=== PATIENT | male | born 1960 | race African-American/Black ===

== ENCOUNTER 2016-12-28 18:38 | Observation (INO) | payer BC, OTHER ==
[~2016-12-28] VITALS: Ht 175.3 cm; Wt 102.1 kg
[~2016-12-28 18:38] MED LIST: APIX5TAB PO; CARV6.25 PO; DUONEB NEB; Ipratropium/Albuterol Sulfate NEB; LISI1TAB7 PO; METH5TAB6 PO; METO25TA9 PO; PRED20TA PO; PRED5TAB PO; WARF7.5T PO
--- NOTE | 2016-12-28 18:45 | ED.ADGEN ---
Past History Past Medical History: A-Fib, Asthma, CAD, GERD, Hypertension, Other Past Surgical History: Knee Replacement, Pacemaker, Other Alcohol Use: None Drug Use: None Adult General Chief Complaint Chief Complaint ".. I ve be having abd. [pain.. I was here the other day for it... and they ended up sending me to [facility].. for cardiac stuff.. but they never fixed my abd. problems..." HPI HPI Patient is a 56 year old male who presents with complaints of lower abdomen pain and distention. Patient previously had a diagnosis of constipation. Patient states she's been having small hard stools. No history of dark tarry or bloody stools. Patient has extensive other medical history including asthma, A. fib, coronary artery disease, GERD, hypertension, pacemaker placement, and deconditioning. Patient states she's been taking a normal diet. No history of trauma. No history of bad food intake. No history of travel. Patient follows Dr. Jackson and [facility] for his medical care. Review of Systems Review of Systems Constitutional: Denies fever or chills [] Eyes: Denies change in visual acuity, redness, or eye pain [] HENT: Denies nasal congestion or sore throat [] Respiratory: Denies cough or shortness of breath [] Cardiovascular: No additional information not addressed in HPI [] GI: Complaints of lower abdominal pain, and distention. Denies Nausea, vomiting , bloody stools or diarrhea [] : Denies dysuria or hematuria [] Musculoskeletal: Denies back pain or joint pain [] Integument: Denies rash or skin lesions [] Neurologic: Denies headache, focal weakness or sensory changes [] Endocrine: Denies polyuria or polydipsia [] Family History Family History Noncontributory Current Medications Current Medications Current Medications Medications (Trade) Dose Ordered Sig/Cyndie Start Time Stop Time Status Last Admin Dose Admin Famotidine (Pepcid) 20 mg 1X ONCE 12/28/16 20:30 12/28/16 20:31 DC 12/28/16 20:44 20 MG Ketorolac Tromethamine (Toradol) 15 mg PRN Q12HR PRN 12/28/16 21:15 01/02/17 21:14 Lactated Ringer's (Iv Lactated Ringers) 1,000 ml @ 1,000 mls/hr Q1H 12/28/16 20:15 12/28/16 22:12 1,000 MLS/HR Magnesium Citrate (Citroma) 296 ml 1X ONCE 12/28/16 21:15 12/28/16 21:16 DC 12/28/16 22:12 296 ML Morphine Sulfate (Morphine 10mg Syringe) 10 mg 1X ONCE 12/28/16 20:30 12/28/16 20:31 DC 12/28/16 20:44 10 MG Ondansetron HCl (Zofran) 4 mg PRN Q4HRS PRN 12/28/16 21:15 12/29/16 21:14 12/28/16 22:14 4 MG Polyethylene Glycol/ Electrolytes (Golytely) 4,000 ml 1X ONCE 12/28/16 21:30 12/28/16 21:31 DC 12/28/16 22:12 4,000 ML Potassium Chloride (KCl Oral Soln) 40 meq 1X ONCE 12/28/16 21:30 12/28/16 21:31 DC 12/28/16 22:11 40 MEQ Allergies Allergies Allergies Coded Allergies Type Severity Reaction Last Updated Verified No Known Drug Allergies 01/22/15 No Physical Exam Physical Exam Constitutional: Mild distress, non-toxic appearance. [] HENT: Normocephalic, atraumatic, bilateral external ears normal, oropharynx moist, no oral exudates, nose normal. [] Eyes: PERRLA, EOMI, conjunctiva normal, no discharge. [] Neck: Normal range of motion, no tenderness, supple, no stridor. [] Cardiovascular: Tachycardia Heart rate regular rhythm, no murmur []Occasional PVC per monitor Lungs & Thorax: Bilateral breath sounds clear to auscultation []. Patient scar Abdomen: Bowel sounds hyperactive, distended, tympanic, soft, lower pelvic tenderness, no masses, no pulsatile masses. Declines rectal exam at this time. No true rebound. Obese Skin: Warm, dry, no erythema, no rash. [] Back: No tenderness, no CVA tenderness. [] Extremities: Complaints of generalized weakness, no focal areas cording or tenderness, no cyanosis, no clubbing, ROM intact, no edema. Atrophy. Deconditioned Neurologic: Alert and oriented X 3, no grossl motor function deficitis, no gross sensory function deficits, no focal deficits noted. [] Psychologic: Affect anxious, judgement normal, mood depressed Current Patient Data Vital Signs Vital Signs Date Time Temp Pulse Resp B/P Pulse Ox O2 Delivery O2 Flow Rate FiO2 12/28/16 20:44 20 92 Room Air 12/28/16 18:45 97.8 92 Lab Results Laboratory Tests Test 12/28/16 19:40 12/28/16 20:41 White Blood Count 8.6x10^3/uL (4.0-11.0) Red Blood Count 5.80x10^6/uL (4.30-5.70) H Hemoglobin 15.5g/dL (13.0-17.5) Hematocrit 47.1% (39.0-53.0) Mean Corpuscular Volume 81fL (79-100) Mean Corpuscular Hemoglobin 27pg (25-35) Mean Corpuscular Hemoglobin Concent 33g/dL (31-37) Red Cell Distribution Width 14.1% (11.5-14.5) Platelet Count 163x10^3/uL (140-400) Neutrophils (%) (Auto) 77% (31-73) H Lymphocytes (%) (Auto) 12% (24-48) L Monocytes (%) (Auto) 10% (0-9) H Eosinophils (%) (Auto) 1% (0-3) Basophils (%) (Auto) 0% (0-3) Neutrophils # (Auto) 6.6x10^3uL (1.8-7.7) Lymphocytes # (Auto) 1.1x10^3/uL (1.0-4.8) Monocytes # (Auto) 0.8x10^3/uL (0.0-1.1) Eosinophils # (Auto) 0.1x10^3/uL (0.0-0.7) Basophils # (Auto) 0.0x10^3/uL (0.0-0.2) Prothrombin Time 10.7SEC (9.4-11.4) Prothrombin Time INR 1.0 (0.9-1.1) PTT 25SEC (23-33) Sodium Level 138mmol/L (136-145) Potassium Level 3.3mmol/L (3.5-5.1) L Chloride Level 97mmol/L (98-107) L Carbon Dioxide Level 38mmol/L (21-32) H Anion Gap 3 (6-14) L Blood Urea Nitrogen 10mg/dL (8-26) Creatinine 0.6mg/dL (0.7-1.3) L Estimated GFR (Cockcroft-Gault) 168.6 Glucose Level 116mg/dL (70-99) H Calcium Level 9.4mg/dL (8.5-10.1) Total Bilirubin 0.6mg/dL (0.2-1.0) Direct Bilirubin 0.2mg/dL (0.0-0.2) Aspartate Amino Transferase (AST) 34U/L (15-37) Alanine Aminotransferase (ALT) 22U/L (16-63) Alkaline Phosphatase 74U/L (46-116) Total Protein 9.0g/dL (6.4-8.2) H Albumin 3.2g/dL (3.4-5.0) L Amylase Level 46U/L (25-115) Lipase 81U/L (73-393) Urine Collection Type Unknown Urine Color Yellow Urine Clarity Clear Urine pH 7.5 Urine Specific [place] 1.015 Urine Protein 100 mg/dl (NEG-TRACE) Urine Glucose (UA) Negmg/dL (NEG) Urine Ketones (Stick) Negmg/dL (NEG) Urine Blood Trace (NEG) Urine Nitrite Neg (NEG) Urine Bilirubin Neg (NEG) Urine Urobilinogen Dipstick 1mg/dL (0.2 mg/dL) Urine Leukocyte Esterase Neg (NEG) Urine RBC 1-2/HPF (0-2) Urine WBC 1-4/HPF (0-4) Urine Squamous Epithelial Cells Few/LPF Urine Bacteria 0/HPF (0-FEW) Urine Opiates Screen Neg (NEG) Urine Methadone Screen Neg (NEG) Urine Barbiturates Neg (NEG) Urine Phencyclidine Screen Neg (NEG) Urine Amphetamine/Methamphetamine Neg (NEG) Urine Benzodiazepines Screen Neg (NEG) Urine Cocaine Screen Neg (NEG) Urine Cannabinoids Screen Neg (NEG) Urine Ethyl Alcohol Neg (NEG) EKG EKG My interpretation EKG shows a sinus tachycardia with occasional PVCs. Left axis deviation. Fascicular block. [] Radiology/Procedures Radiology/Procedures My interpretation of abdomen film shows no free air under diaphragm. Pacer placement.. Increased stool. CT of abdomen shows gallbladder distended. No obvious inflammation. No findings of hydronephrosis. No findings of bowel obstruction or inflammation. Muscle atrophy. [] Course & Med Decision Making Course & Med Decision Making Pertinent Labs and Imaging studies reviewed. (See chart for details) Patient to be admitted to Dr. Ariza for further evaluation and treatment. Patient to complete a GoLYTELY prep. We'll place on a clear fluid diet. Follow- up labs. [] Final Impression Final Impression 1. Abdomen pain 2. Constipation 3. Sinus tachycardia. 4. Hypokalemia 5. Malnutrition moderate albumin 3.2 [] Problems: Dragon Disclaimer Dragon Disclaimer This electronic medical record was generated, in whole or in part, using a voice recognition dictation system. RAYMOND PATEL MD Dec 28, 2016 18:45
[2016-12-28] MEDS ORDERED: FAMOTIDINE 20 MG/2 ML VIAL IVP ONE (20:30)
[2016-12-28] MEDS ORDERED: MORPHINE SULFATE 10 MG/ML SYRINGE. SQ ONE (20:30)
[2016-12-28] MEDS ORDERED: ONDANSETRON PF 4 MG/2 ML VIAL. IV ONE (20:30)
[2016-12-28 20:33] LABS: BASO % 0 % (0-3); EOS # 0.1 x10^3/uL (0.0-0.7); EOS % 1 % (0-3); HEMATOCRIT 47.1 % (39.0-53.0); HEMOGLOBIN 15.5 g/dL (13.0-17.5); LYMPH # 1.1 x10^3/uL (1.0-4.8); LYMPH % 12 % (24-48); MEAN CORPUSCULAR HEMOGLOBIN 27 pg (25-35); MEAN CORPUSCULAR HGB CONC 33 g/dL (31-37); MEAN CORPUSCULAR VOLUME 81 fL (79-100); MONO # 0.8 x10^3/uL (0.0-1.1); MONO % 10 % (0-9); NEUT # 6.6 x10^3uL (1.8-7.7); NEUT % 77 % (31-73); PLATELET COUNT 163 x10^3/uL (140-400); RED CELL DISTRIBUTION WIDTH 14.1 % (11.5-14.5); WHITE BLOOD COUNT 8.6 x10^3/uL (4.0-11.0)
[2016-12-28] MEDS: IV RINGERS SOLUTION,LACTATED 1,000 ML IV SCH ×3 (20:43→22:13)
[2016-12-28 20:47] LABS: ALBUMIN 3.2 g/dL (3.4-5.0); CALCIUM 9.4 mg/dL (8.5-10.1); CREATININE 0.6 mg/dL (0.7-1.3); DIRECT BILIRUBIN 0.2 mg/dL (0.0-0.2); GFR 168.6; POTASSIUM 3.3 mmol/L (3.5-5.1); TOTAL BILIRUBIN 0.6 mg/dL (0.2-1.0)
--- NOTE | 2016-12-28 20:58 | RAD ---
PROCEDURE CT abdomen and pelvis without intravenous contrast. HISTORY Severe abdominal pain and constipation. TECHNIQUE Helical CT of the abdomen and pelvis was performed without intravenous or oral contrast. Exposure: One or more of the following individualized dose reduction techniques were utilized for this examination: 1. Automated exposure control. 2. Adjustment of the mA and/or kV according to patient size. 3. Use of iterative reconstruction technique. COMPARISON CT abdomen pelvis December 14, 2016. FINDINGS Evaluation of solid organs is limited by lack of intravenous contrast. Evaluation of enteric structures may be limited by lack of oral contrast. There is motion artifact at multiple levels which could obscure subtle abnormalities. Images of lower chest demonstrate portions of pacemaker. Incompletely seen is right gynecomastia. Liver, spleen, pancreas, and bilateral adrenal glands are unremarkable. Bilateral kidneys and ureters free of stone or obstruction. The interpolar region of right kidney demonstrates 1.4 centimeter low-density lesion likely status. No renal stone or obstruction is seen. No bowel obstruction or inflammation is identified. Urinary bladder is unremarkable. No free air or free fluid is seen in the abdomen or pelvis. There is marked atrophy of multiple muscles, especially the bilateral psoas and iliacus musculature as well as the gluteus mario. Multiple additional muscle groups demonstrate severe fatty atrophy. The gallbladder appears distended. No radiodense gallstones are seen. Evaluation for inflammation is limited secondary to motion. Moderate wedge compression of the L1 vertebral body is similar to previous study. IMPRESSION 1. Gallbladder is distended. Evaluation for gallbladder inflammation is limited. If there is concern for cholecystitis, ultrasound could be performed. 2. No evidence of urinary stone. 3. No evidence of bowel obstruction or inflammation. 4. Marked atrophy of multiple muscle groups. Electronically signed by: Junior Hearn MD (Dec 28, 2016 20:56:37)
--- NOTE | 2016-12-28 21:02 | EKG ---
[address] [address] Test Date: 2016-12-28 Test Time: 21:01:33 Pat Name: CRIS DISLA Department: Room: Gender: M Silk Brusher: STACY : 1960 Requested By: RAYMOND PATEL Order Number: [id number] Reading MD: Measurements Intervals [place] Rate: 105 P: 64 LA: 148 QRS: -54 QRSD: 128 T: 90 QT: 358 QTc: 477 Interpretive Statements SINUS TACHYCARDIA VENTRICULAR PREMATURE COMPLEX(ES) ABNORMAL LEFT AXIS DEVIATION LEFT ANTERIOR FASCICULAR BLOCK RIGHT BUNDLE BRANCH BLOCK BIFASCICULAR BLOCK ABNORMAL ECG RI6.01 Unconfirmed report Compared to ECG 01/22/2015 11:15:19 Right bundle-branch block now present Bifascicular block now present Sinus rhythm no longer present Incomplete right bundle-branch block no longer present T-wave abnormality no longer present
[2016-12-28] MEDS ORDERED: KETOROLAC 15 MG/ML VIAL. IV PRN (21:15)
[2016-12-28] MEDS ORDERED: ONDANSETRON PF 4 MG/2 ML VIAL. IV PRN (21:15)
[2016-12-28] MEDS ORDERED: MAGNESIUM CITRATE 296 ML SOLUTION. PO ONE (21:15)
[2016-12-28] MEDS ORDERED: POTASSIUM CHLORIDE 20 MEQ/15 ML ORAL LIQUID. PO ONE (21:30)
[2016-12-28] MEDS ORDERED: PEG 3350/NA SULF,BICARB,CL/KCL 4,000 ML SOLUTION. PO ONE (21:30)
[2016-12-28 22:06] LABS: BARBITURATES NEG (NEG); BENZODIAZEPINES NEG (NEG); CANNABINOIDS NEG (NEG); COCAINE NEG (NEG); METHADONE NEG (NEG); OPIATES NEG (NEG); PHENCYCLIDINE NEG (NEG)
[2016-12-28 22:24] LABS: AMPHETAMINE/METHAMPHETAMINE NEG (NEG)
[2016-12-28 22:32] LABS: BACTERIA,URINE 0 /HPF (0-FEW); BILIRUBIN,URINE NEG (NEG); CLARITY,URINE CLEAR; COLOR,URINE YELLOW; GLUCOSE,URINE NEG (NEG); NITRITE,URINE NEG (NEG); SQUAMOUS EPITHELIAL CELL,UR FEW /LPF; UROBILINOGEN,URINE 1 mg/dL (0.2 mg/dL)
[2016-12-28 22:35] VITALS: BP 116/88
[2016-12-28] MEDS ORDERED: SILD100T PO (23:53)
[2016-12-28] MEDS ORDERED: HYDR25TA9 PO (23:53)
[2016-12-29] MEDS ORDERED: Influenza vaccine per PROTOCOL. MC PRN (01:00)
[2016-12-29 05:04] VITALS: BP 118/84
[2016-12-29] MEDS ORDERED: SODIUM PHOSPHATES 19/7GM 133 ML ENEMA. PR ONE (06:00)
[2016-12-29] MEDS: IV RINGERS SOLUTION,LACTATED 1,000 ML IV SCH (06:26)
[2016-12-29] MEDS ORDERED: DUONEB NEB PRN (06:30)
[2016-12-29 06:40] LABS: BASO % 0 % (0-3); EOS % 1 % (0-3); HEMATOCRIT 42.7 % (39.0-53.0); HEMOGLOBIN 13.9 g/dL (13.0-17.5); LYMPH # 0.7 x10^3/uL (1.0-4.8); LYMPH % 11 % (24-48); MEAN CORPUSCULAR HEMOGLOBIN 27 pg (25-35); MEAN CORPUSCULAR HGB CONC 33 g/dL (31-37); MEAN CORPUSCULAR VOLUME 81 fL (79-100); MONO # 0.7 x10^3/uL (0.0-1.1); MONO % 11 % (0-9); NEUT # 5.1 x10^3uL (1.8-7.7); NEUT % 77 % (31-73); PLATELET COUNT 145 x10^3/uL (140-400); RED BLOOD COUNT 5.24 x10^6/uL (4.30-5.70); WHITE BLOOD COUNT 6.7 x10^3/uL (4.0-11.0)
[2016-12-29 06:45] LABS: ALBUMIN 2.8 g/dL (3.4-5.0); ALBUMIN/GLOBULIN RATIO 0.5 (1.0-1.7); CALCIUM 8.3 mg/dL (8.5-10.1); CREATININE 0.6 mg/dL (0.7-1.3); GFR 168.6; TOTAL BILIRUBIN 0.7 mg/dL (0.2-1.0); TOTAL PROTEIN 7.9 g/dL (6.4-8.2)
[2016-12-29] MEDS ORDERED: IPRATRPIUM/ALBUTEROL 0.5/2.5MG 3 ML NEBU. NEB PRN (07:30)
--- NOTE | 2016-12-29 08:00 | RAD ---
Indication: Severe abdominal pain and constipation today. Technique: Abdominal series with PA chest radiograph contains 3 images. Comparison is from May 22, 2012. Findings: Chest radiograph is a low lung volume film. Left basilar atelectasis or less likely infiltrate is noted. The heart is not enlarged and there is no heart failure. Pacemaker is present. The bowel gas pattern is nonobstructive. There is increased stool in the colon, especially the proximal colon. There is no dilated bowel loop or air-fluid level. There is no free air. Impression: 1. Constipation. 2. Left basilar atelectasis or less likely infiltrate.
--- NOTE | 2016-12-29 08:27 | ACF ---
Admission Criteria Forms ABDOMINAL PAIN Clinical Indications for Admission to Inpatient Care (Place 'X' for any and all applicable criteria): Admission is indicated for ANY ONE of the following(1)(2)(3)(4)(5): [X]I. Inpatient admission required rather than observation care (Also use Abdominal Pain: Observation Care, as appropriate) because of ANY ONE of the following: [ ]a) Severe pain requiring acute inpatient management [X]b) Identification of etiology/finding that requires inpatient care (eg, aortic dissection, free air) [ ]c) Absent bowel sounds with complete ileus(6) [ ]d) Suspected toxic megacolon [ ]e) Severe electrolyte abnormalities requiring inpatient care [ ]f) High fever or infection requiring inpatient admission as indicated by ANY ONE of following(7)(8): [ ] i) Appropriate outpatient or observational care antimicrobial treatment unavailable, not effective, or not feasible [ ] ii) Documented bacteremia [ ] iii) Temperature > 104.9 degrees F (oral) [ ] iv) T >103.1 F (oral) or < 96.8 F(rectal) that does not respond to all emergency treatment measures [ ]g) Signs of intestinal obstruction [B] [ ]h) Hemodynamic instability [ ]i) IV fluid to replace significant ongoing losses (greater than 3 L/m2 per day) (12)(13) [ ]j) Percutaneous or open drainage (eg, abscess, biliary tract ) procedures [ ]k) Parenteral nutrition regimen that must be implemented on inpatient basis [ ]l) Other condition,treatment or monitoring requiring inpatient admission. [ ]II. Peritoneal signs present [ ]III. Surgery needed that cannot be performed on an ambulatory basis. [ ]IV. Evaluation requires patient to not eat or drink for extended period ( eg, more than 24 hours). [ ]V. Contraindications and/or Inappropriate clinical situations for Observational Care in patients with abdominal pain, when ANY ONE of the following is required: [ ]a) Thorough evaluation is required to prevent catastrophic events due to delays in diagnosing (e.g.Mesenteric ischemia) 1,3 [ ]b) Patient with severe pathology or with chronic symptoms unlikely to improve in the ED stay (3) [ ]. General contraindications and/or Inappropriate clinical situations for Observational Care in patients with abdominal pain, when ANY ONE of the following is required: [ ]a) Prediction of prolongation of LOS based on ANY ONE of the following may be considered as a contraindication for observational care 2, 3, 4, 5, 6, 7, 8, 9, 10, 11 [ ]i) Age > 65 yrs. [ ]ii) Patient arriving by ambulance [ ]iii) Patient with high acuity [ ]iv) Patient requiring vital sign monitoring [ ]v) Patient on IV medication [ ]b) Systolic blood pressures 180mmHg 3,12 [ ]c) Patient with altered mental status including delirium and other alteration of consciousness, (3) [ ]d) Patient whose discharge disposition will be to a senior living home or rehabilitation home should not be managed in Emergency Department Observation Unit. CMS rule requires 3 days hospital stay before such placement.3,13 [ ]e) Patient with failure to thrive due to broad array of etiologies 3,16,17 [ ]f) Inability to ambulate 3,14 Extended stay beyond goal length of stay may be needed for(2)(3): [ ]a) Persistent abdominal pain with suspected intra-abdominal process [ ]b) Diagnosed condition requiring continued stay (e.g., pancreatitis, complicated diverticulitis) [ ]c) Surgery (e.g., colectomy) The original [facility] content created by [employer] has been revised. The portions of the content which have been revised are identified through the use of italic text or in bold, and [facility] has neither reviewed nor approved the modified material.All other unmodified content is copyright [facility]. Please see references footnoted in the original [facility] edition 2016 Admission Criteria Met?: Yes JOEY DE LOS SANTOS Dec 29, 2016 08:26
[2016-12-29] MEDS ORDERED: METHIMAZOLE 5 MG TABLET PO SCH (09:00)
[2016-12-29] MEDS ORDERED: METOPROLOL SUCC 24HR ER 25 MG TAB.ER.24H. PO SCH (09:00)
[2016-12-29] MEDS ORDERED: APIXABAN 5 MG TABLET. PO SCH (09:00)
[2016-12-29] MEDS ORDERED: FLU VACC QUAD 2016-17 (36MOS+)/PF 0.5 ML SYRINGE. VAX IM ONE (09:00)
[2016-12-29] MEDS ORDERED: HYDROCHLOROTHIAZIDE 25 MG TABLET PO SCH (09:00)
[2016-12-29] MEDS ORDERED: MAGN296S PO (10:49)
[2016-12-29 12:42] VITALS: BP 123/81
== END 2016-12-29 14:30 | disposition home or self-care (01) ==
LOC: ER 18:38 → 1 SOUTH 21:55 → INTOOBSV 21:55
PROVIDERS: ADMIT Family Medicine; ATTEND Family Medicine
DX: R10.84 Generalized abdominal pain (principal); K59.00 Constipation, unspecified; R00.0 Tachycardia, unspecified; D86.9 Sarcoidosis, unspecified; I10 Essential (primary) hypertension; J45.909 Unspecified asthma, uncomplicated; K21.9 Gastro-esophageal reflux disease without esophagitis; I25.10 Atherosclerotic heart disease of native coronary artery without angina pectoris; I48.0 Paroxysmal atrial fibrillation; Z95.0 Presence of cardiac pacemaker; Z96.659 Presence of unspecified artificial knee joint; Z23 Encounter for immunization
CPT/HCPCS: 36415; 74022; 74176; 80048; 80053; 80076; 81001; 82150; 83690; 85027; 85610; 85730; 90471; 90686; 93005; 94250; 94640; 94760; 96361; 96372; 96374; 96375; 96376; 97162; 97166; 99285; G0378; G0481; J2270; J2405; J7120; J7620; S0028; G0379

== ENCOUNTER → 2018-11-28 | Outpatient (CLI) | payer BC, OTHER ==
[~2018-11-28] MED LIST changes: -APIX5TAB PO; +APIX5TAB3 PO; +HYDR-2145 PO; +MAGN296S9 PO; +METO-239 PO; -METO25TA9 PO; +SILD100T PO; -WARF7.5T PO; +WARF7.5T48 PO
--- NOTE | 2018-11-28 11:09 | RAD ---
Examination: CT of the abdomen pelvis without contrast HISTORY: History of hematuria, vomiting, abdominal pain COMPARISON: 12/28/2016 TECHNIQUE: Axial CT images of abdomen pelvis were performed without contrast. Coronal and sagittal reformats are performed Exposure: One or more of the following individualized dose reduction techniques were utilized for this examination: 1. Automated exposure control 2. Adjustment of the mA and/or kV according to patient size 3. Use of iterative reconstruction technique FINDINGS: Mild bibasilar lung atelectasis. No evidence of free air identified in the abdomen. The evaluation of solid organs is limited due to lack of IV contrast. The evaluation of bowel is limited due to lack of oral contrast. The visualized noncontrasted liver demonstrates mild decreased attenuation likely mild hepatic steatosis. The visualized spleen, adrenals grossly appears unremarkable. The stomach is mildly distended. The visualized pancreas grossly appears unremarkable. The small bowel is nondilated. Feces and gas noted in the colon. The visualized appendix appears unremarkable. No evidence of intrarenal collecting system calculi or hydronephrosis. The urinary bladder is mildly distended. Minimal fat stranding identified about the urinary bladder wall. There is a cystic structure identified in the right kidney measuring 1.6 cm similar to prior exam. The gallbladder is moderately distended with multiple gallstones within. The gallstones are present in the dependent portion the fundus of the gallbladder and in the proximal portion of the stomach probably extending into the gallbladder neck. Moderate compression changes of L1 vertebral body. Moderate degenerative changes identified throughout the lumbar spine. Fatty atrophic changes of the bilateral psoas muscle and the gluteus mario muscle similar to prior exam. IMPRESSION: 1. Moderately distended gallbladder with multiple gallstones in the fundus and proximal portion the gallbladder probably extending into the gallbladder neck. Ultrasound right upper quadrant is recommended. 2. Mild fat stranding identified about the urinary bladder. Correlate for cystitis. Electronically signed by: Fredrick Uriostegui MD (11/28/2018 11:05 AM) [place] [id number]
== END | disposition home or self-care (01) ==
LOC: CT 10:20
PROVIDERS: ATTEND Physician Assistant
DX: K80.20 Calculus of gallbladder without cholecystitis without obstruction (principal); M47.816 Spondylosis without myelopathy or radiculopathy, lumbar region; K31.89 Other diseases of stomach and duodenum; N32.89 Other specified disorders of bladder; J98.11 Atelectasis
CPT/HCPCS: 74176

== ENCOUNTER → 2019-04-25 | Outpatient (CLI) | payer BC, OTHER ==
--- NOTE | 2019-04-25 09:27 | RAD ---
PQRS Compliance Statement: One or more of the following individualized dose reduction techniques were utilized for this examination: 1. Automated exposure control 2. Adjustment of the mA and/or kV according to patient size 3. Use of iterative reconstruction technique CT abdomen/pelvis without contrast 04/25/2019 12:00 AM INDICATION: Left lower quadrant abdominal pain, hematuria COMPARISON: CT abdomen/pelvis November 28, 2018 TECHNIQUE: Multiple axial CT images of the abdomen and pelvis were obtained without intravenous contrast. Coronal and sagittal reformats are provided. FINDINGS: There is mild pulmonary vascular congestion. Heart size is enlarged. Cardiac pacer wires are partially profiled. No pericardial effusion. Evaluation of the solid abdominal viscera is limited by lack of intravenous contrast. Liver, spleen and bilateral adrenal glands are normal in appearance. Evaluation of the mid abdomen is limited by motion artifact. Pancreas is grossly within normal limits. Abdominal aorta is normal in course and caliber. No pathologically enlarged lymph nodes are identified in abdomen and pelvis. There is no free fluid or free intraperitoneal air. Stomach is normal in appearance. Small and large bowel are normal in caliber. There is no evidence for bowel obstruction. There are no pericolonic inflammatory changes. A normal, nondilated appendix is visualized without adjacent inflammatory changes. There is a 19 mm simple cyst in the right kidney. Evaluation of the renal cortex is limited by motion artifact. The kidneys are relatively symmetric in appearance. There is no suspicious renal mass within the limitations of a noncontrast examination. There is no hydronephrosis. There are no calculi within the kidneys, ureters or urinary bladder. Mild bladder wall thickening may be secondary to underdistention versus chronic outlet obstruction. Prostate and seminal vesicles are normal in appearance. No suspicious osseous abnormality is identified. Chronic superior plate compression deformities are identified involving L1 and L4 with 25% height loss. IMPRESSION: 1. Cardiomegaly with mild pulmonary vascular congestion as may be seen with congestive heart failure. No significant pleural effusions. 2. No evidence for obstructive uropathy. 3. Evaluation is limited by noncontrast examination as well as motion artifact. 4. Chronic superior plate compression deformities at L1 and L4. Electronically signed by: Sarah Jauregui MD (04/25/2019 9:23 AM) [id number]
== END | disposition home or self-care (01) ==
LOC: CT 08:49
PROVIDERS: ATTEND Physician Assistant
DX: I51.7 Cardiomegaly (principal); N28.1 Cyst of kidney, acquired; R09.89 Other specified symptoms and signs involving the circulatory and respiratory systems
CPT/HCPCS: 74176

== ENCOUNTER → 2020-10-25 | Outpatient (CLI) | payer BC, MEDICARE ==
[~2020-10-25] MED LIST changes: +LISI1TAB20 PO; -LISI1TAB7 PO; +MAGN296S68 PO; -MAGN296S9 PO
--- NOTE | 2020-10-25 10:58 | RAD ---
EXAM: Right foot, 3 views. HISTORY: Pain. COMPARISON: None. FINDINGS: 3 views of the right foot are obtained. There is mild spurring of the first metatarsal head . There is no acute fracture, dislocation or subluxation. There are vascular calcifications. There is a tiny plantar spur. IMPRESSION: No acute osseous finding. Electronically signed by: Anastasia Rachel MD (10/25/2020 10:55 AM) [id number]
== END ==
LOC: DXRAD 10:13
PROVIDERS: ATTEND Nurse Practitioner Adult Health
DX: M77.31 Calcaneal spur, right foot (principal)
CPT/HCPCS: 73630